=== PATIENT | female | born 1975 | race Caucasian/White ===

== ENCOUNTER 2022-11-07 08:43 | Day surgery (SDC) | payer OTHER ==
[~2022-11-07] VITALS: Ht 157.5 cm; Wt 68.4 kg
[~2022-11-07 08:43] MED LIST: FENO48TA8 PO; GABA-282 PO; LIDOCAINE 2% 100MG/5ML SDV (FOR ANES.) As Ordered ONE; MONT10TA97 PO; NS 1,000 ML IV ONE; SIMV20TA22 PO; propofoL 200 MG/20 ML VIAL As Ordered ONE
[2022-11-07] MEDS ORDERED: propofoL 200 MG/20 ML VIAL As Ordered ONE (10:03)
[2022-11-07 10:30] VITALS: BP 132/81; O2SAT 97
== END 2022-11-07 10:31 | disposition home or self-care (01) ==
LOC: M OPP 08:43
PROVIDERS: ATTEND Internal Medicine Gastroenterology
DX: K51.40 Inflammatory polyps of colon without complications (principal); K63.5 Polyp of colon; K64.4 Residual hemorrhoidal skin tags; K64.8 Other hemorrhoids; K63.89 Other specified diseases of intestine; R10.32 Left lower quadrant pain; Z79.02 Long term (current) use of antithrombotics/antiplatelets; Z79.891 Long term (current) use of opiate analgesic; Z79.899 Other long term (current) drug therapy